=== PATIENT | female | born 1985 | race Two or more races ===

== ENCOUNTER 2020-12-31 21:49 | Emergency (ER) | payer OTHER ==
[~2020-12-31] VITALS: Ht 165.1 cm; Wt 58.1 kg
[2020-12-31] MEDS ORDERED: IBUPROFEN 400 MG TABLET PO ONE (23:00)
[2020-12-31] MEDS ORDERED: IBUPROFEN 400 MG TABLET ONE (23:14)
--- NOTE | 2020-12-31 23:19 | NUR ---
GOING TO CT
--- NOTE | 2021-01-01 00:09 | NUR ---
PT OK TO DISCHARGE PER DR CARRERA. Patient discharged to home in stable condition. Written and verbal after care instructions given. Patient verbalizes understanding of instruction.Patient is awake and alert to self, day, and place. PT ambulatory with a steady gait
[2021-01-01 00:10] VITALS: BP 110/67
== END 2021-01-01 00:11 | disposition home or self-care (01) ==
LOC: ER 21:55
DX: S13.8XXA Sprain of joints and ligaments of other parts of neck, initial encounter (principal); S09.8XXA Other specified injuries of head, initial encounter; R51.9 Headache, unspecified; Z88.1 Allergy status to other antibiotic agents; V49.59XA Passenger injured in collision with other motor vehicles in traffic accident, initial encounter; Y93.89 Activity, other specified; Y92.488 Other paved roadways as the place of occurrence of the external cause; Y99.8 Other external cause status
CPT/HCPCS: 70450; 72125; 99284; L0172